=== PATIENT | male | born 1975 | race Caucasian/White ===

== ENCOUNTER 2018-12-23 12:22 | Emergency (ER) | payer MEDICAID ==
[~2018-12-23] VITALS: Ht 177.8 cm; Wt 86.2 kg
[2018-12-23 12:48] VITALS: BP 149/88
--- NOTE | 2018-12-23 13:03 | NUR ---
URINE COLLECTED AND SENT TO LAB
== END 2018-12-23 13:27 | disposition home or self-care (01) ==
LOC: ER 12:22
DX: F10.10 Alcohol abuse, uncomplicated (principal); F41.9 Anxiety disorder, unspecified; I10 Essential (primary) hypertension; E11.9 Type 2 diabetes mellitus without complications
CPT/HCPCS: 99283; A4606

== ENCOUNTER 2019-04-11 22:56 | Inpatient (IN) | payer MEDICAID ==
[~2019-04-11] VITALS: Ht 180.3 cm; Wt 83.9 kg
[2019-04-11] MEDS ORDERED: IV NS 0.9% 1,000 ML BAG IV ONE (23:30)
[2019-04-11 23:38] LABS: APPEARANCE,URINE Clear (CLEAR); BILIRUBIN,URINE Negative (NEGATIVE); BLOOD, URINE Trace-lysed Ery/uL (NEGATIVE); COLOR,URINE Yellow (YELLOW); KETONES,URINE 15 (NEGATIVE); LEUKOCYTE ESTERASE ,URINE Negative (NEGATIVE); NITRITE, URINE Negative (NEGATIVE); PH,URINE 5.5 (5.0-8.0); PROTEIN,URINE 100 mg/dl (NEGATIVE); UGLUCOSE 500 MG/DL mg/dL (NEGATIVE); UROBILINOGEN,URINE 0.2 EU/dL (0.2)
[2019-04-11 23:44] LABS: BASOPHILS # (AUTO) 0.1 /CMM (0.0-0.2); EOSINOPHILS % (AUTO) 1.4 % (0.0-6.0); HEMATOCRIT 42 % (39-51); HEMOGLOBIN 15.1 g/dL (13.5-17.5); LYMPHOCYTES # (AUTO) 2.7 /CMM (0.8-4.8); LYMPHOCYTES % (AUTO) 40.7 % (20.0-44.0); MEAN CORPUSCULAR HGB CONC 36 g/dl (31.0-36.0); MEAN CORPUSCULAR VOLUME 98 fL (80-96); MONOCYTES # (AUTO) 0.4 /CMM (0.1-1.30); MONOCYTES % (AUTO) 5.9 % (2.0-12.0); NEUTROPHILS # (AUTO) 3.3 /CMM (1.8-8.9); PLATELET COUNT (AUTO) 253 /CMM (150-450); WHITE BLOOD COUNT (AUTO) 6.6 K/uL (4.3-11.0)
[2019-04-11 23:47] LABS: CALCIUM, SERUM 9.1 mg/dL (8.5-10.1); CREATININE 1.2 mg/dL (0.6-1.3); POTASSIUM 4.7 mmol/L (3.5-5.1)
[2019-04-12] VITALS (24 sets, daily range): BP systolic 123–151; BP diastolic 72–91
[2019-04-12 00:16] LABS: BACTERIA,URINE Few /HPF (None Seen); SQUAMOUS EPITHELIAL CELL,UR Rare /HPF (None Seen); WBC,URINE 0-2 /HPF (0-3)
[2019-04-12 00:19] LABS: ABG BASE EXCESS -5.5 mmol/L; ABG OXYGEN SATURATION 93.5 % (92.0-98.5); ABG PCO2 38.6 mmHg (35.0-45.0); ABG PO2 77.9 mmHg (75.0-100.0); COHb 6.9 % (0.5-1.5); MetHb 0.6 % (0.0-1.5); O2Hb 86.5 % (94.0-97.0); VENT MODE, BG VENOUS
[2019-04-12] MEDS ORDERED: INSULIN REGULAR, HUMAN 100 UNIT/ML 10 ML VIAL ONE (00:59)
[2019-04-12] MEDS ORDERED: INSULIN REGULAR, HUMAN 100 UNIT in IV NS 0.9% 99 ML IV ONE ×2 (01:00)
[2019-04-12] MEDS ORDERED: IV NS 0.9% 1,000 ML IV PRN (01:13)
[2019-04-12] MEDS ORDERED: Z GUARD REMEDY 2 OZ OINT TP PRN (01:30)
[2019-04-12] MEDS ORDERED: INSULIN REGULAR, HUMAN 100 UNIT in IV NS 0.9% 99 ML IV PRN ×4 (01:30→03:00)
[2019-04-12] MEDS ORDERED: ACETAMINOPHEN 325 MG TABLET PO PRN (01:30)
[2019-04-12] MEDS ORDERED: Folic acid 1 MG in IV D5W 50 ML IV SCH ×2 (01:30→21:00)
[2019-04-12] MEDS ORDERED: ZOLPIDEM TARTRATE 5 MG TABLET PO PRN (01:30)
[2019-04-12] MEDS ORDERED: MAGNESIUM HYDROXIDE 30 ML UDC PO PRN (01:30)
[2019-04-12] MEDS ORDERED: MAG HYDROX/AL HYDROX/SIMETH 30 ML UDC PO PRN (01:30)
[2019-04-12] MEDS ORDERED: Thiamine 100 MG in IV D5W 50 ML IV SCH ×2 (01:30→21:00)
[2019-04-12] MEDS ORDERED: ONDANSETRON HCL/PF 4 MG/2 ML VIAL IVP PRN (01:30)
[2019-04-12] MEDS ORDERED: Thiamine 100 MG/ML VIAL ONE (02:25)
[2019-04-12] MEDS ORDERED: IV NS 0.9% 1,000 ML BAG IV ONE (02:30)
[2019-04-12] MEDS: LORAZEPAM INJ 2 MG/ML VIAL IV PRN ×7 (02:48→21:19)
[2019-04-12] MEDS ORDERED: Folic acid 1 MG/0.2 ML VIAL ONE (03:03)
[2019-04-12 04:44] LABS: BASOPHILS # (AUTO) 0.1 /CMM (0.0-0.2); BASOPHILS % (AUTO) 2.2 % (0.0-2.0); EOSINOPHILS % (AUTO) 1.5 % (0.0-6.0); HEMATOCRIT 36 % (39-51); HEMOGLOBIN 12.9 g/dL (13.5-17.5); LYMPHOCYTES # (AUTO) 2.1 /CMM (0.8-4.8); LYMPHOCYTES % (AUTO) 42.7 % (20.0-44.0); MEAN CORPUSCULAR HGB CONC 36 g/dl (31.0-36.0); MEAN CORPUSCULAR VOLUME 98 fL (80-96); MONOCYTES # (AUTO) 0.4 /CMM (0.1-1.30); MONOCYTES % (AUTO) 7.3 % (2.0-12.0); NEUTROPHILS # (AUTO) 2.3 /CMM (1.8-8.9); NEUTROPHILS % (AUTO) 46.3 % (43.0-81.0); PLATELET COUNT (AUTO) 189 /CMM (150-450); RED BLOOD CELL COUNT(AUTO) 3.67 MIL/uL (4.5-6.0)
[2019-04-12 04:55] LABS: ALBUMIN 3.4 g/dL (3.4-5.0); BILIRUBIN,TOTAL 0.2 mg/dL (0.2-1.0); CALCIUM, SERUM 8.1 mg/dL (8.5-10.1); CREATININE 0.9 mg/dL (0.6-1.3); MAGNESIUM 1.8 mg/dL (1.8-2.4); PHOSPHORUS 2.5 mg/dL (2.5-4.9); POTASSIUM 3.6 mmol/L (3.5-5.1); TOTAL PROTEIN, SERUM 6.3 g/dL (6.4-8.2)
[2019-04-12] MEDS: BLOOD SUGAR DIAGNOSTIC 1 EACH STRIP IN SCH ×13 (05:07→21:32)
[2019-04-12] MEDS ORDERED: IV D5/0.45 NACL 1,000 ML IV SCH (06:30)
[2019-04-12] MEDS: HYDROCODONE/APAP 5/325MG 1 EACH TABLET PO PRN ×2 (07:54→15:54)
[2019-04-12] MEDS ORDERED: INSU100V10 SQ (08:00)
[2019-04-12] MEDS ORDERED: FLUO40CA8 PO (08:00)
[2019-04-12] MEDS ORDERED: LISI30TA4 PO (08:00)
[2019-04-12] MEDS ORDERED: INSU100C10 SQ (08:00)
[2019-04-12] MEDS ORDERED: LORA0.5T PO (08:00)
[2019-04-12] MEDS: MORPHINE SULFATE INJ 4 MG/ML DISP.SYRIN IV PRN ×4 (09:58→22:31)
[2019-04-12] MEDS ORDERED: IV D5/0.45 NACL 1,000 ML IV PRN (10:00)
[2019-04-12 11:01] LABS: CREATININE 0.9 mg/dL (0.6-1.3); MAGNESIUM 1.8 mg/dL (1.8-2.4); POTASSIUM 3.9 mmol/L (3.5-5.1)
[2019-04-12 13:35] LABS: CALCIUM, SERUM 7.9 mg/dL (8.5-10.1); CREATININE 0.9 mg/dL (0.6-1.3); MAGNESIUM 1.8 mg/dL (1.8-2.4); PHOSPHORUS 2.5 mg/dL (2.5-4.9); POTASSIUM 3.7 mmol/L (3.5-5.1)
[2019-04-12 17:27] LABS: CALCIUM, SERUM 8.1 mg/dL (8.5-10.1); CREATININE 0.9 mg/dL (0.6-1.3); POTASSIUM 3.5 mmol/L (3.5-5.1)
[2019-04-12 17:36] LABS: MAGNESIUM 1.9 mg/dL (1.8-2.4); PHOSPHORUS 2.7 mg/dL (2.5-4.9)
[2019-04-12] MEDS: INSULIN REGULAR, HUMAN 100 UNIT/ML 3 ML VIAL SQ PRN (21:22)
[2019-04-12] MEDS ORDERED: *INSULIN REGULAR(HUMULIN R)HUM 100 UNIT/ML VIAL SQ PRN (21:30)
[2019-04-12] MEDS ORDERED: DEXTROSE 50%-WATER 50 ML DISP.SYRIN IV PRN (21:30)
[2019-04-12 21:38] LABS: CALCIUM, SERUM 7.7 mg/dL (8.5-10.1); CREATININE 1.3 mg/dL (0.6-1.3); MAGNESIUM 1.7 mg/dL (1.8-2.4); PHOSPHORUS 4.1 mg/dL (2.5-4.9); POTASSIUM 4.3 mmol/L (3.5-5.1)
[2019-04-12] MEDS ORDERED: INSULIN GLARGINE, 100 UNIT/ML CARTRIDGE SQ SCH (22:00)
[2019-04-13] VITALS (18 sets, daily range): BP systolic 122–156; BP diastolic 72–97
[2019-04-13] MEDS: LORAZEPAM INJ 2 MG/ML VIAL IV PRN ×4 (01:31→17:31)
[2019-04-13 01:56] LABS: CALCIUM, SERUM 8.4 mg/dL (8.5-10.1); CREATININE 1.1 mg/dL (0.6-1.3); POTASSIUM 3.9 mmol/L (3.5-5.1)
[2019-04-13 02:00] LABS: MAGNESIUM 1.9 mg/dL (1.8-2.4); PHOSPHORUS 3.7 mg/dL (2.5-4.9)
[2019-04-13] MEDS: MORPHINE SULFATE INJ 4 MG/ML DISP.SYRIN IV PRN ×2 (04:25→13:16)
[2019-04-13 05:02] LABS: BASOPHILS # (AUTO) 0.1 /CMM (0.0-0.2); EOSINOPHILS % (AUTO) 1.8 % (0.0-6.0); HEMATOCRIT 38 % (39-51); HEMOGLOBIN 13.3 g/dL (13.5-17.5); LYMPHOCYTES # (AUTO) 2.2 /CMM (0.8-4.8); LYMPHOCYTES % (AUTO) 30.3 % (20.0-44.0); MEAN CORPUSCULAR HGB CONC 35 g/dl (31.0-36.0); MEAN CORPUSCULAR VOLUME 99 fL (80-96); MONOCYTES # (AUTO) 0.6 /CMM (0.1-1.30); MONOCYTES % (AUTO) 9.1 % (2.0-12.0); NEUTROPHILS # (AUTO) 4.1 /CMM (1.8-8.9); NEUTROPHILS % (AUTO) 57.8 % (43.0-81.0); PLATELET COUNT (AUTO) 171 /CMM (150-450); RED BLOOD CELL COUNT(AUTO) 3.85 MIL/uL (4.5-6.0); WHITE BLOOD COUNT (AUTO) 7.2 K/uL (4.3-11.0)
[2019-04-13 05:41] LABS: BILIRUBIN,TOTAL 0.4 mg/dL (0.2-1.0); CALCIUM, SERUM 8.3 mg/dL (8.5-10.1); CREATININE 0.8 mg/dL (0.6-1.3); MAGNESIUM 1.9 mg/dL (1.8-2.4); POTASSIUM 3.8 mmol/L (3.5-5.1); TOTAL PROTEIN, SERUM 5.8 g/dL (6.4-8.2)
[2019-04-13] MEDS: BLOOD SUGAR DIAGNOSTIC 1 EACH STRIP IN SCH ×3 (07:53→17:22)
[2019-04-13] MEDS: INSULIN REGULAR, HUMAN 100 UNIT/ML 3 ML VIAL SQ PRN ×3 (08:48→17:23)
[2019-04-13] MEDS ORDERED: THIAMINE HCL 100 MG TABLET PO SCH (10:00)
[2019-04-13] MEDS ORDERED: FOLIC ACID 1 MG TABLET PO SCH (10:00)
[2019-04-13] MEDS ORDERED: INSULIN GLARGINE, 100 UNIT/ML CARTRIDGE SQ ONE (10:00)
[2019-04-13] MEDS ORDERED: CLON2TAB PO (10:09)
[2019-04-13] MEDS ORDERED: PNEUMOCOCCAL 23-VAL P-SAC VAC 0.5 ML VIAL SQ ONE (12:00)
== END 2019-04-13 18:05 | disposition home or self-care (01) | DRG 420 ==
LOC: ER 22:57 → ICU 04-12 00:52
PROVIDERS: ADMIT Internal Medicine; ATTEND Nurse Practitioner Acute Care
DX: E11.10 Type 2 diabetes mellitus with ketoacidosis without coma (principal); G92 Toxic encephalopathy; F10.229 Alcohol dependence with intoxication, unspecified; I10 Essential (primary) hypertension; F17.200 Nicotine dependence, unspecified, uncomplicated; Z79.4 Long term (current) use of insulin; F10.239 Alcohol dependence with withdrawal, unspecified
CPT/HCPCS: 36415; 36600; 80048-TC; 80053-TC; 80061-TC; 81000-TC; 82803-TC; 82962-TC; 83735-TC; 84100-TC; 85025-TC; 87081-TC; 90732; G0378; G0480; J1815; J2060; J2270; J3411; J3490; J7030; J7060

== ENCOUNTER 2019-04-26 09:54 | Inpatient (IN) | payer MEDICAID ==
[~2019-04-26] VITALS: Ht 180.3 cm; Wt 85.3 kg
[~2019-04-26 09:54] MED LIST: CLON2TAB PO; FLUO40CA8 PO; INSU100C10 SQ; INSU100V10 SQ; LISI30TA4 PO
--- NOTE | 2019-04-26 10:05 | NUR ---
IV LINE STARTED BLOOD DRAWN AND SENT TO LAB.
--- NOTE | 2019-04-26 10:05 | NUR ---
DR FLOREZ AT BEDSIDE FOR EVAL.
[2019-04-26] MEDS ORDERED: DIVA-78 PO (10:10)
[2019-04-26] MEDS ORDERED: DIVA-76 PO (10:10)
[2019-04-26 10:19] LABS: BASOPHILS # (AUTO) 0.2 /CMM (0.0-0.2); BASOPHILS % (AUTO) 2.7 % (0.0-2.0); HEMATOCRIT 40 % (39-51); HEMOGLOBIN 13.9 g/dL (13.5-17.5); LYMPHOCYTES # (AUTO) 2.6 /CMM (0.8-4.8); LYMPHOCYTES % (AUTO) 38.1 % (20.0-44.0); MEAN CORPUSCULAR HGB CONC 35 g/dl (31.0-36.0); MEAN CORPUSCULAR VOLUME 102 fL (80-96); MONOCYTES # (AUTO) 0.4 /CMM (0.1-1.30); MONOCYTES % (AUTO) 5.7 % (2.0-12.0); NEUTROPHILS # (AUTO) 3.6 /CMM (1.8-8.9); NEUTROPHILS % (AUTO) 51.5 % (43.0-81.0); PLATELET COUNT (AUTO) 192 /CMM (150-450); RED BLOOD CELL COUNT(AUTO) 3.95 MIL/uL (4.5-6.0); WHITE BLOOD COUNT (AUTO) 6.9 K/uL (4.3-11.0)
[2019-04-26] MEDS ORDERED: IV NS 0.9% 1,000 ML BAG IV ONE ×2 (10:30→11:00)
[2019-04-26 10:31] LABS: ALBUMIN 3.7 g/dL (3.4-5.0); BILIRUBIN,TOTAL 0.2 mg/dL (0.2-1.0); CALCIUM, SERUM 8.2 mg/dL (8.5-10.1); CREATININE 1.4 mg/dL (0.6-1.3); POTASSIUM 4.5 mmol/L (3.5-5.1); SALICYLATE 4.1 mg/dL (2.8-20.0)
[2019-04-26] MEDS ORDERED: INSULIN REGULAR, HUMAN 100 UNIT/ML 10 ML VIAL ONE (10:42)
--- NOTE | 2019-04-26 10:44 | NUR ---
CALLED [facility] ITS DR. WARD
[2019-04-26] MEDS ORDERED: POTASSIUM CHLORIDE 20 MEQ TAB.PRT.SR PO ONE ×2 (10:54→11:00)
[2019-04-26] MEDS ORDERED: INSULIN REGULAR, HUMAN 100 UNIT/ML 10 ML VIAL SQ ONE (11:00)
[2019-04-26] MEDS ORDERED: DIVALPROEX SODIUM 250 MG TABLET.DR PO SCH ×2 (11:00→11:45)
[2019-04-26] MEDS ORDERED: INSULIN LISPRO/ASPART 100 UNIT/ML CARTRIDGE SQ PRN ×2 (11:00→11:45)
--- NOTE | 2019-04-26 11:13 | NUR ---
REPORT GIVEN TO BEN FARR. PT AWAITING TRANSFER TO FLOOR.
[2019-04-26 12:00] VITALS: BP 128/78
[2019-04-26] MEDS ORDERED: IV 1/2NS 1000 ML 1,000 ML IV PRN (12:40)
[2019-04-26] MEDS ORDERED: ONDANSETRON HCL/PF 4 MG/2 ML VIAL IVP PRN (13:00)
[2019-04-26] MEDS ORDERED: MAGNESIUM HYDROXIDE 30 ML UDC PO PRN (13:00)
[2019-04-26] MEDS ORDERED: MAG HYDROX/AL HYDROX/SIMETH 30 ML UDC PO PRN (13:00)
[2019-04-26] MEDS ORDERED: ACETAMINOPHEN 325 MG TABLET PO PRN (13:00)
[2019-04-26] MEDS ORDERED: HYDROCODONE/APAP 5/325MG 1 EACH TABLET PO PRN (13:00)
[2019-04-26] MEDS ORDERED: ZOLPIDEM TARTRATE 5 MG TABLET PO PRN (13:00)
[2019-04-26] MEDS ORDERED: Z GUARD REMEDY 2 OZ OINT TP PRN (13:00)
--- NOTE | 2019-04-26 13:00 | NUR ---
RN NOTE DR.DERDERIAN BRAXTON, AWAITING TO HEARBACK REGARDING SLIDING SCALE
--- NOTE | 2019-04-26 13:25 | NUR ---
ADMISSION NOTE PT WAS BROUGHT UP [facility]IA [employer] AT THIS TIME, A/O X4 BREATHING EVEN AND UNLABORED, PT FEELING NAUSEOUS AND FEELS LIKE THEY WILL THROW UP, CURRENT COMPLAINTS OF PAIN ON LEFT SIDE OF ABDOMEN AND BACK, NOTED TO HAVE IV IN LEFT FA #18, NOTED TO HAVE COME UP WITH BACK THAT HAD TWO ROCKSTARS AND 1 BOTTLE CAN OF BEER, SAFETY PRECAUTIONS IN PLACE, CALL LIGHT WITHIN REACH, WILL MONITOR PT ACCORDINGLY. Addendum: 04/26/19 at 1329 by BEN LANDRUM RN WRONG TIME. SUPPOSED TO BE 1140
--- NOTE | 2019-04-26 13:39 | NUR ---
RN NOTE PT ALLOWED SKIN ASSESSMENT OF UPPER BODY AND FEET BUT REFUSED TO TAKE OFF HIS PANTS. NOTHING WAS NOTED ON UPPER BODY AND FEET, BUT UNABLE TO ASSESS BUTTOCK, PERINEAL, AND LEGS.
[2019-04-26] MEDS ORDERED: Folic acid 1 MG in IV D5W 50 ML IV SCH (14:00)
[2019-04-26] MEDS ORDERED: *INSULIN REGULAR(HUMULIN R)HUM 100 UNIT/ML VIAL SQ PRN (15:00)
[2019-04-26] MEDS ORDERED: Thiamine 100 MG in IV D5W 50 ML IV SCH (15:00)
[2019-04-26] MEDS ORDERED: DEXTROSE 50%-WATER 50 ML DISP.SYRIN IV PRN (15:00)
--- NOTE | 2019-04-26 15:09 | NUR ---
RN NOTE PT WAS NOT NOTED TO BE IN ROOM AT THIS TIME, UNIT WAS CHECKED WITH NO SIGN OF PATIENT, SECURITY INFORMED.
--- NOTE | 2019-04-26 15:14 | NUR ---
RN NOTE SECURITY INFORMED ABOUT PT DESCRIPTION, THEY SAID THEY WILL TAKE A LOOK AT THIS TIME. WILL AWAIT FOR FURTHER INFORMATION.
--- NOTE | 2019-04-26 15:38 | NUR ---
RN NOTE PT BACKL UP ON THE FLOOR AT BTHIS TIME
[2019-04-26] MEDS: INSULIN REGULAR, HUMAN 100 UNIT/ML 3 ML VIAL SQ PRN ×2 (15:45→17:52)
[2019-04-26] MEDS: BLOOD SUGAR DIAGNOSTIC 1 EACH STRIP IN SCH ×3 (15:45→21:35)
[2019-04-26 16:00] VITALS: BP 148/81
--- NOTE | 2019-04-26 16:00 | NUR ---
RN NOTE PT WAS NOTED TO BE AGGRESSIVE AND THREATENING AT THIS TIME, SECURITY CALLED AND RN PRODUCTION LAPPING MACHINE OPERATOR MADE AWARE THAT PT STATES HE WANTS TO GO OUT BUT REFUSES TO SIGN AMA FORM. CALLED AND ORDERED FOR ATIVAN 1 MG Q3H PRN, MORPHINE 1 MG Q3H PRN, NICOTINE PATCH 21 MG, AND PSYCH EVAL GIVEN. WILL IMPLEMENT AND CARRY OUT.
[2019-04-26] MEDS ORDERED: NICOTINE PATCH (21MG) 21 MG PATCH.TD24 TD STA (16:16)
[2019-04-26] MEDS: LORAZEPAM INJ 2 MG/ML VIAL IV PRN ×2 (16:47→21:35)
[2019-04-26] MEDS: MORPHINE SULFATE INJ 2 MG/ML DISP.SYRIN IV PRN ×2 (16:47→20:41)
--- NOTE | 2019-04-26 17:11 | NUR ---
RN NOTE PSYCH DR. COOK REQUEST FOR CRISIS TEAM AT THIS TIME FOR SUICIDAL THOUGHTS. WILL NOTIFY THEM
--- NOTE | 2019-04-26 17:34 | NUR ---
RN NOTE PT WAS NOTED TO HAVE LEFT HIS ROOM AGAIN AT THIS, WILL INFORM SECURITY AGAIN AND AWAIT FOR MORE INFORMATION.
--- NOTE | 2019-04-26 17:41 | NUR ---
RN NOTE PT BACK IN HIS ROOM AT THIS TIME
[2019-04-26] MEDS ORDERED: DIVALPROEX SODIUM 500 MG TABLET.DR PO SCH ×2 (18:00)
--- NOTE | 2019-04-26 18:36 | NUR ---
RN NOTE KRISS FROM CRISIS TEAM HERE AT THIS TIME AND WILL TALK TO PATIENT
--- NOTE | 2019-04-26 18:37 | NUR ---
RN CLOSING PT IN BED AT LOWEST AND LOCKED POSITION WITH SIDE RAILS UPX2, A/O X3-4 BREATHING EVEN AND UNLABORED ON RA WITH CURRENT COMPLAINTS OF PAIN IN HIS ABDOMEN, CURRENTLY BEING ASSESSED BY CRISIS SEAT COVER CUTTER KRISS, IV IS CURRENTLY PATENT AND INTACT, CURRENTLY HE IS NOT AGGRESSIVE BUT HE IS MORE SECLUDED, HAS ATTEMPTED MUTIPLE TIMES TO EXIT THE FACILITY TO GO SMOKE THROUGHOUT SHIFT EVEN THOUGH HE WAS MADE SOUZA TO CALL US TO GO WITH HIM. PT HAS PULLED OUT HIS IV MUTIPLE TIMES BUT HE CURRENTLY HAS ONE IN PLACE IN LEFT FA GAUGE 22 AT THIS TIME. SAFETY PRECAUTIONS IN PLACE, CALL LIGHT WITHIN REACH, WILL ENDORSE TO NIGHT RN FOR GHADA.
[2019-04-26] MEDS ORDERED: INSULIN GLARGINE, 100 UNIT/ML CARTRIDGE SQ SCH (22:00)
--- NOTE | 2019-04-26 22:05 | NUR ---
RN NOTES Pt IS REFUSING TO FOLLOW HOSPITAL RULES AND LEFT AMA. REMOVED IV ACCESS ON LFA #22G, SECURED WITH GAUZE AND TAPE. Pt SIGNED ONLY AMA PAPER. Pt REFUSED TO WAIT ANY LONGER TO SIGN BELONGINGS LIST, Pt WAS ALREADY WALKING AWAY, ASKED Pt TO WAIT SO HE CAN SIGN FOR THE BELONGINGS LIST, Pt KEPT WALKING & STATED OUT LOUD HE ALREADY HAS EVERYTHING WITH HIM AND KEPT WALKING AWAY. CALLED SECURITY TO LET THEM KNOW Pt HAS SIGNED OUT AMA. NURSE STEAM POWER PLANT OPERATOR AND MD WILL BE NOTIFIED.
--- NOTE | 2019-04-26 22:30 | NUR ---
RN NOTES DR LAZCANO MADE AWARE OF Pt LEAVING AMA.
[2019-04-27] MEDS ORDERED: FLUOXETINE HCL 20 MG CAPSULE PO SCH (09:00)
[2019-04-27] MEDS ORDERED: LISINOPRIL (10MG) 10 MG TABLET PO SCH (09:00)
== END 2019-04-26 22:00 | disposition left against medical advice (07) | DRG 420 ==
LOC: ER 09:54 → MEDSG2 12:33
PROVIDERS: ADMIT Internal Medicine; ATTEND Internal Medicine
DX: E10.65 Type 1 diabetes mellitus with hyperglycemia (principal); N17.0 Acute kidney failure with tubular necrosis; G92 Toxic encephalopathy; F33.2 Major depressive disorder, recurrent severe without psychotic features; K85.90 Acute pancreatitis without necrosis or infection, unspecified; R45.851 Suicidal ideations; Z79.4 Long term (current) use of insulin; I10 Essential (primary) hypertension; F10.229 Alcohol dependence with intoxication, unspecified; F17.200 Nicotine dependence, unspecified, uncomplicated; Z79.899 Other long term (current) drug therapy
CPT/HCPCS: 36415; 80048-TC; 80076-TC; 80305; 82962-TC; 83690-TC; 85025-TC; 87081-TC; G0378; G0480; J1815; J2060; J2270; J3411; J3490; J7030; J7060

== ENCOUNTER 2019-04-27 08:02 | Emergency (ER) | payer MEDICAID ==
[~2019-04-27] VITALS: Ht 180.3 cm; Wt 81.6 kg
[~2019-04-27 08:02] MED LIST changes: -CLON2TAB PO; +DIVA-76 PO; +DIVA-78 PO
[2019-04-27 08:06] VITALS: BP 124/74
--- NOTE | 2019-04-27 08:18 | NUR ---
DR MCMULLEN AT BEDSIDE FOR EVAL.
[2019-04-27] MEDS ORDERED: IV NS 0.9% 1,000 ML BAG IV ONE (08:30)
[2019-04-27 08:33] LABS: BASOPHILS # (AUTO) 0.1 /CMM (0.0-0.2); BASOPHILS % (AUTO) 1.3 % (0.0-2.0); EOSINOPHILS % (AUTO) 2.8 % (0.0-6.0); HEMATOCRIT 40 % (39-51); HEMOGLOBIN 13.8 g/dL (13.5-17.5); LYMPHOCYTES # (AUTO) 2.3 /CMM (0.8-4.8); LYMPHOCYTES % (AUTO) 31.1 % (20.0-44.0); MEAN CORPUSCULAR HGB CONC 35 g/dl (31.0-36.0); MEAN CORPUSCULAR VOLUME 99 fL (80-96); MONOCYTES # (AUTO) 0.6 /CMM (0.1-1.30); MONOCYTES % (AUTO) 8.2 % (2.0-12.0); NEUTROPHILS # (AUTO) 4.2 /CMM (1.8-8.9); NEUTROPHILS % (AUTO) 56.6 % (43.0-81.0); PLATELET COUNT (AUTO) 188 /CMM (150-450); RED BLOOD CELL COUNT(AUTO) 3.97 MIL/uL (4.5-6.0); WHITE BLOOD COUNT (AUTO) 7.5 K/uL (4.3-11.0)
[2019-04-27 08:34] LABS: APPEARANCE,URINE Clear (CLEAR); BILIRUBIN,URINE Negative (NEGATIVE); BLOOD, URINE Negative Ery/uL (NEGATIVE); COLOR,URINE Yellow (YELLOW); KETONES,URINE Negative (NEGATIVE); LEUKOCYTE ESTERASE ,URINE Negative (NEGATIVE); NITRITE, URINE Negative (NEGATIVE); PH,URINE 5.5 (5.0-8.0); PROTEIN,URINE Negative (NEGATIVE); UGLUCOSE >=1000 mg/dL (NEGATIVE); UROBILINOGEN,URINE 0.2 EU/dL (0.2)
[2019-04-27 08:38] LABS: BACTERIA,URINE Rare /HPF (None Seen); HYALINE CASTS, URINE Rare /LPF (None Seen); RBC,URINE 0-2 /HPF (0-2); SQUAMOUS EPITHELIAL CELL,UR Rare /HPF (None Seen); WBC,URINE 0-2 /HPF (0-3)
[2019-04-27 08:41] LABS: POTASSIUM 4.1 mmol/L (3.5-5.1)
[2019-04-27 08:42] LABS: CALCIUM, SERUM 8.6 mg/dL (8.5-10.1); CREATININE 1.1 mg/dL (0.6-1.3)
[2019-04-27 08:46] LABS: BILIRUBIN,TOTAL 0.3 mg/dL (0.2-1.0)
[2019-04-27 08:47] LABS: ALBUMIN 3.7 g/dL (3.4-5.0); BILIRUBIN,DIRECT 0.1 mg/dL (0.0-0.2); TOTAL PROTEIN, SERUM 7.1 g/dL (6.4-8.2)
[2019-04-27] MEDS ORDERED: INSULIN REGULAR, HUMAN 100 UNIT/ML 10 ML VIAL ONE (08:57)
[2019-04-27] MEDS ORDERED: INSULIN REGULAR, HUMAN 100 UNIT/ML 10 ML VIAL SQ ONE (09:00)
--- NOTE | 2019-04-27 09:06 | NUR ---
CAME IN FOR ABDOMINAL PAIN, DIZZINESS. " I THINK MY BLOOD SUGAR IS HIGH.", ADMITTED YESTERDAY FOR HYPERGLYCEMIA. TO ER BED 7, HOOKED TO MONITOR, CHANGED TO GOWN, PROVIDED W WARM BLANKET, PT AOX4 , NOT IN DISTRESS, AWAITING MD WILSON
--- NOTE | 2019-04-27 09:10 | NUR ---
2 CANS OF 24 OZ. "AGAPITO"BRAND BEERS FOUND IN HIS POSESSION IN ER BED 7, SECURITY CALLED FOR MARIAJOSE AND JORGE L, DR MCMULLEN INFORMED
--- NOTE | 2019-04-27 09:18 | NUR ---
PT STATES HE WANTS TO LEAVE AND PULLED OUT IVP LINE. Pressure and 4x4 applied to site. No bleeding noted.
--- NOTE | 2019-04-27 09:25 | NUR ---
PT STATES HE WANTS TO STAY, SECURITY AT BEDSIDE, SEARCHED PATIENT AND BELONGINGS.
--- NOTE | 2019-04-27 09:46 | NUR ---
Patient does not wish to proceed with medical care recommended by Dr. MCMULLEN. Patient given information related to possible complications, up to and including , which could occur as a result of leaving the hospital at this time. Patient verbalizes understanding of risks involved due to leaving against medical advice. Patient did not sign AMA form.
== END 2019-04-27 09:55 | disposition left against medical advice (07) ==
LOC: ER 08:09
DX: E11.65 Type 2 diabetes mellitus with hyperglycemia (principal); I10 Essential (primary) hypertension; F10.10 Alcohol abuse, uncomplicated; F17.200 Nicotine dependence, unspecified, uncomplicated; Y90.9 Presence of alcohol in blood, level not specified; Z79.4 Long term (current) use of insulin
CPT/HCPCS: 36415; 80048; 80076; 81001; 82962; 85025; 96360; 96372; 99283; J1815; J7030; 81000-TC